=== PATIENT | male | born 1980 | race Two or more races ===

== ENCOUNTER 2021-03-06 13:24 | Emergency (ER) | payer OTHER ==
[~2021-03-06] VITALS: Ht 177.8 cm; Wt 99.8 kg
--- NOTE | 2021-03-06 13:40 | NUR ---
[employer] FOR ABDOMINAL PAIN X 5 DAYS AND "URINATING BLOOD" X 2 DAYS. RATES PAIN 5/10. ABDOMEN SOFT AND NON-DISTENDED. IN ROOM AIR AND DENIES SOB. RESPIRATION REGULAR AND UNLABORED. OFFICERS AT THE BEDSIDE. WILL CONTINUE TO MONITOR THE PATIENT.
[2021-03-06 13:52] LABS: BILIRUBIN,URINE LARGE (NEGATIVE); COLOR,URINE DARK YELLOW (YELLOW); LEUKOCYTE ESTERASE ,URINE Negative (NEGATIVE); NITRITE, URINE Negative (NEGATIVE); PROTEIN,URINE 100 mg/dl (NEGATIVE); UGLUCOSE 100 MG/DL mg/dL (NEGATIVE)
[2021-03-06 14:02] LABS: BASOPHILS # (AUTO) 0.1 K/uL (0.0-0.2); BASOPHILS % (AUTO) 0.7 % (0.0-2.0); EOSINOPHILS % (AUTO) 2.2 % (0.0-6.0); HEMATOCRIT 43 % (39-51); HEMOGLOBIN 14.5 g/dL (13.5-17.5); LYMPHOCYTES # (AUTO) 2.1 K/uL (0.8-4.8); LYMPHOCYTES % (AUTO) 25.2 % (20.0-44.0); MEAN CORPUSCULAR HGB CONC 34 g/dl (31.0-36.0); MEAN CORPUSCULAR VOLUME 80 fL (80-96); MONOCYTES # (AUTO) 0.9 K/uL (0.1-1.30); MONOCYTES % (AUTO) 10.6 % (2.0-12.0); NEUTROPHILS % (AUTO) 61.3 % (43.0-81.0); PLATELET COUNT (AUTO) 154 K/uL (150-450); RED BLOOD CELL COUNT(AUTO) 5.34 MIL/uL (4.5-6.0); WHITE BLOOD COUNT (AUTO) 8.2 K/uL (4.3-11.0)
[2021-03-06 14:05] LABS: RBC,URINE 0-2 /HPF (0-2); WBC,URINE 0-2 /HPF (0-3)
[2021-03-06 14:06] LABS: BACTERIA,URINE Rare /HPF (None Seen); HYALINE CASTS, URINE Rare /LPF (None Seen); SQUAMOUS EPITHELIAL CELL,UR 0-2 /HPF (None Seen)
--- NOTE | 2021-03-06 14:10 | NUR ---
US TECH AT THE BEDSIDE
[2021-03-06 14:14] LABS: ALBUMIN 3.1 g/dL (3.4-5.0); BILIRUBIN,DIRECT 4.6 mg/dL (0.0-0.2); BILIRUBIN,TOTAL 5.6 mg/dL (0.2-1.0); CALCIUM, SERUM 8.7 mg/dL (8.5-10.1); CREATININE 0.8 mg/dL (0.6-1.3); POTASSIUM 3.5 mmol/L (3.5-5.1); TOTAL PROTEIN, SERUM 8.1 g/dL (6.4-8.2)
--- NOTE | 2021-03-06 15:41 | NUR ---
[facility]ED [facility]HER LEVEL OF CARE TRANSFER AND SPOKE TO TREV. NO CAPACITY AT THIS TIME.
--- NOTE | 2021-03-06 15:46 | NUR ---
ROOM 321-2
--- NOTE | 2021-03-06 16:00 | NUR ---
CALLED [facility] TRANSFER [facility]ENTER AND UNABLE TO ACCOMODATE PATIENT DUE TO BEING IN CUSTODY.
--- NOTE | 2021-03-06 16:24 | NUR ---
CALLED [facility] AND WANTS CLINICALS FAXED TO [employer].
--- NOTE | 2021-03-06 18:39 | NUR ---
PALLAVI [phone] CALLED BACK PALLAVI FROM [facility]. SHE HAS BEEN CONTACT FOR PATIENTS STATUS ON TRANSFER. CURRENTLY WAITING FOR ACCEPTANCE INFO BUT PER PALLAVI SINCE PATIENT HAS NO INSURANCE, THEY WILL DENY THE CASE. STATED THAT PATIENT IS IN CUSTODY AND SENSITIZED PAPER TESTER WOULD TAKE CARE OF EXPENSES SINCE PATIENT IS CURRENTLY INCARCERATED. PALLAVI WILL CONTACT HER ESTIMATOR JEWELRY TO SEE HOW THEY CAN ACCOMODATE.
--- NOTE | 2021-03-06 19:23 | NUR ---
Does not wish to proceed with medical care recommended by Dr. Pope. Patient given information related to possible complications, up to and including , which could occur as a result of leaving the hospital at this time. Patient and officers verbalize understanding of risks involved due to leaving against medical advice. Signed AMA form.
[2021-03-06 19:25] VITALS: BP 131/76
== END 2021-03-06 19:25 | disposition left against medical advice (07) ==
LOC: ER 13:27
DX: K72.00 Acute and subacute hepatic failure without coma (principal); K72.10 Chronic hepatic failure without coma; B19.20 Unspecified viral hepatitis C without hepatic coma; Z20.822 Contact with and (suspected) exposure to COVID-19; Z53.29 Procedure and treatment not carried out because of patient's decision for other reasons
CPT/HCPCS: 36415; 76700; 80048; 80076; 81001; 83690; 85025; 85730; 87426; 99285; C9803